=== PATIENT | male | born 1995 | race Caucasian/White ===

== ENCOUNTER 2016-09-22 22:23 | Emergency (ER) | payer OTHER ==
[~2016-09-22] VITALS: Ht 170.2 cm; Wt 129.6 kg
[2016-09-22] MEDS ORDERED: VITAD1000 PO (22:45)
[2016-09-23] MEDS ORDERED: LORazepam 1 MG TABLET PO ONE (00:15)
[2016-09-23 00:18] VITALS: BP 110/70
== END 2016-09-23 00:29 | disposition home or self-care (01) ==
LOC: EMS 22:26
DX: F41.9 Anxiety disorder, unspecified (principal); R06.02 Shortness of breath
CPT/HCPCS: 99283